=== PATIENT | female | born 1945 | race Caucasian/White ===

== ENCOUNTER 2018-08-22 08:06 | Emergency (ER) | payer MEDICARE, SELFPAY ==
[2018-08-22] VITALS (18 sets, daily range): BP systolic 120–146; BP diastolic 65–116; PULSE 61–84; RESP 16–20; TEMP 36.3; O2SAT 92–99
--- NOTE | 2018-08-22 08:31 | DI.CT_ITS ---
SYMPTOMS/DIAGNOSIS: HEADACHE, NAUSEA, ? ACUTE CEREBROVASCULAR ACCIDENT CT BRAIN, NONCONTRAST: No priors. The ventricles and sulci are consistent with the patient's age. There do appear to be areas of decreased attenuation in the white matter consistent with small vessel ischemic disease. No acute intracranial hemorrhage , infarct, midline shift or mass effect is identified. Fluid levels are seen in the maxillary sinuses bilaterally. There is mucosal thickening seen in the frontal sinuses, ethmoid air cells and mastoid sinuses bilaterally. Small fluid levels are seen in the sphenoid sinuses bilaterally. The mastoid air cells are well pneumatized. The calvarium is intact. IMPRESSION: 1. No acute intracranial process. 2. Bilateral pansinusitis.
--- NOTE | 2018-08-22 08:31 | DI.RAD_ITS ---
SYMPTOMS/DIAGNOSIS: NAUSEA, SWEATS, ? ACUTE DISEASE CHEST X-RAY, FRONTAL AND LATERAL VIEWS: No priors. The heart size is at the upper limits of normal. Pulmonary vasculature is within normal limits. Increased lung markings are seen in the right base medially. This may represent a small area of atelectasis, scarring or pneumonia. The lungs are otherwise clear. No effusions or pneumothoraces are identified. There is a hiatal hernia present. Degenerative changes are seen in the spine. IMPRESSION: Question of an infiltrate in the medial right lung base. This may represent atelectasis or pneumonia.
[2018-08-22 08:53] LABS: Abs Immature Grans 0.01 k/cumm (0.0-0.09); Absolute Basophil Count 0.02 k/cumm (0.0-0.2); Absolute Lymphocyte Count 1.27 k/cumm (1.2-3.4); Absolute Monocyte Count 0.55 k/cumm (0.11-0.7); Absolute Neutrophil Count 5.93 k/cumm (1.2-6.7); Basophils % 0.3; Eosinophils % 1.3; HCT 41.8 % (36.0-46.0); HGB 13.5 g/dL (12.0-15.5); Immature Grans % 0.1; Lymphocytes % 16.1; Mean Corp. HGB Concentration 32.3 g/dL (32.0-36.0); Mean Corpuscular Hemoglobin 28.8 pg (27.0-33.0); Mean Corpuscular Volume 89.3 fL (80-95); Mean Platelet Volume 10.1 fL (8.0-11.0); Neutrophils % 75.2; Platelet Count 269 x1000/uL (130-400); RBC 4.68 m/cumm (4.00-5.20); RBC Distribution Width 14.9 % (11.7-14.6); White Blood Cell Count 7.88 k/cumm (4.4-10.8)
[2018-08-22 09:06] LABS: ALT 23 U/L (12-78); AST 14 U/L (15-37); Albumin 3.4 g/dL (3.4-5.0); Alkaline Phosphatase 100 U/L (46-116); Anion Gap 8.5 mmol/L (3-11); BUN 18 mg/dL (7-18); Bilirubin, Direct 0.09 mg/dL (0.00-0.20); Bilirubin, Total 0.4 mg/dL (0.2-1.0); CO2 25.5 mmol/L (21.0-32.0); CREATININE 0.76 mg/dL (0.55-1.02); Calcium 8.7 mg/dL (8.5-10.1); Chloride 106 mmol/L (98-107); Glucose 137 mg/dL (70-100); Potassium 4.1 mmol/L (3.5-5.1); Sodium 140 mmol/L (136-145); Total Protein 7.1 g/dL (6.4-8.2)
[2018-08-22 09:08] LABS: Troponin I < 0.02 ng/mL (0.00-0.06)
--- NOTE | 2018-08-22 10:22 | DI.VRAD_ITS ---
EXAM: CT Head Without Intravenous Contrast EXAM DATE/TIME: 08/22/2018 8:33 AM CLINICAL HISTORY: 73 years old, female; Signs and symptoms; Dizziness and fever; Patient HX: Headache, nausea. TECHNIQUE: Axial computed tomography images of the head/brain without intravenous contrast. All CT scans at this facility use at least one of these dose optimization techniques: automated exposure control; mA and/or kV adjustment per patient size (includes targeted exams where dose is matched to clinical indication); or iterative reconstruction. Coronal and sagittal reformatted images were created and reviewed. COMPARISON: No relevant prior studies available. FINDINGS: Brain: Mild cerebral atrophy and ischemic leukoencephalopathy. Ventricles: Normal. No ventriculomegaly. Bones/joints: Normal. No acute fracture. Sinuses: Moderate bilateral maxillary sinus disease. Moderate bilateral frontal sinus disease. Moderate bilateral ethmoid sinus disease. There is mild bilateral sphenoid sinus disease. Mild to moderate bilateral pansinusitis. Mastoid air cells: Normal as visualized. No mastoid effusion. Soft tissues: Normal. IMPRESSION: Mild to moderate bilateral pansinusitis. Dictated and Authenticated by: Shawn Barron MD. Ordering:REJI CENTENO MD
--- NOTE | 2018-08-22 10:22 | DI.VRAD_ITS ---
EXAM: XR Chest, 2 Views EXAM DATE/TIME: 08/22/2018 8:33 AM CLINICAL HISTORY: 73 years old, female; Signs and symptoms; Fever TECHNIQUE: XR of the chest, 2 views. COMPARISON: No relevant prior studies available. FINDINGS: Lungs: Hyperaerated lungs consistent with moderate COPD . Mild right medial basilar bronchopneumonia. Pleural space: Unremarkable. No pleural effusion. No pneumothorax. Heart/Mediastinum: Moderate intrathoracic hiatal hernia. Bones/joints: Mild dextroscoliosis. IMPRESSION: 1. Moderate intrathoracic hiatal hernia. 2. Hyperaerated lungs consistent with moderate COPD . 3. Mild right medial basilar bronchopneumonia. Dictated and Authenticated by: Shawn Barron MD. Ordering:REJI CENTENO MD
[2018-08-22] MEDS: diphenhydrAMINE 50 MG/ML VIAL 25 MG IVP (10:35)
[2018-08-22] MEDS: Prochlorperazine 10 MG/2 ML VIAL IVP (10:36)
[2018-08-22] MEDS: Normal Saline 250 ML 500 ML IV (10:36)
--- NOTE | 2018-08-22 10:43 | W.ED.GENAD ---
Discharge Plan Disposition Patient Disposition: HOME Condition: Improving Discharge Details Chief Complaint: GenMedical Clinical Impression: Pneumonia, Sinusitis Primary Care Provider: Louie Wolf ED Provider: Hilary Haley Home Meds and New Rx's Prescriptions: New doxycycline monohydrate 100 mg capsule 100 mg PO BID 7 Days Qty: 14 RF: 0 amoxicillin-pot clavulanate [Augmentin] 875-125 mg tablet 1 tab PO BID 7 Days Qty: 14 RF: 0 Continue rosuvastatin [Crestor] 5 MG tablet 5 mg PO every other day Qty: 30 RF: 6 Discharge Instructions Instructions: Sinusitis (ED), Pneumonia (ED) Additional Instructions: Drink plenty of fluids and get plenty of rest. Take the antibiotics until finished. Follow-up with your primary care doctor in 1 week for reevaluation. Return to the emergency department with any worsening or new concerning symptoms. Discharge Data Discharge Date/Time-TO BE ENTERED AT DEPARTURE: 08/22/18 12:13 Discharge Physician: Hilary Haley Medical Decision Making 73-year-old female with history of hyperlipidemia, diabetes, osteoarthritis, GERD and obesity who presents with headache, dizziness, nausea this morning. She admits to 2 weeks of cold symptoms with nasal congestion, rhinorrhea, cough with green sputum. She states the sweats, dizziness, headache and nausea have improved, but overall still feels slightly nauseous. She thinks she is dehydrated. She states she has been eating but drinking less than usual. Blood pressure hypertensive, but otherwise vitals within normal limits. Normal ENT exam. Lungs clear to auscultation. Abdomen soft nontender. No focal deficits. 0840 --EKG noted a rate of 60, sinus, no acute ST elevation or depression, QTc 434, QRS 96. T wave inversion in lead III is seen in previous EKG. Considering patient's age and complaints, cardiac workup and CT head ordered on arrival. 11 AM: Labs and imaging reviewed white blood cell count 7.88. Hemoglobin 13.5. Electrolytes within normal limits, troponin negative. CT head notes a mild to moderate bilateral pansinusitis. Chest x-ray notes a mild right medial basilar bronchopneumonia. Patient was unable to give urine sample and she has no urinary complaints so we will cancel at this time. Patient denied any spinning sensation. She was given a 500 cc bolus, Compazine and Benadryl. Due to her history of prediabetes and hyperlipidemia, will treat for pneumonia with comorbidities with Augmentin and Zithromax. 1145 --patient feels much better and is requesting to go home. She was able to ambulate to the bathroom, take sips of water and eat crackers. She declines nausea medication for home. Instructed to follow-up with primary care doctor in 1 week and return here if worse. HPI General Mode of arrival: ambulatory. Date/Time Provider Initiated Documentation: 08/22/18 08:06. Limitations to Documentation: no limitations. Information obtained by: patient. HPI Narrative: Pt is a 73yo with a history of hyperlipidemia, pre-diabetes, osteoarthritis, GERD, obesity who presents nausea, sweats, dizziness and headache this morning with cold symptoms times 2 weeks. Patient states she woke up feeling sweaty and lightheaded. She states she still feels nauseous but states this is improved. She currently denies feeling sweaty, dizzy or with headache. She states she has been eating okay but admits to possibly being dehydrated and not drinking as much. She states for the past 2 weeks she has had nasal congestion, runny nose, cough with green sputum. She denies known fever, shortness of breath, chest pain, urinary symptoms, abdominal pain, recent hospital admission or antibiotics. States she saw her PCP last week for a different reason and was evaluated for her cold symptoms but was not given any medications. Past medical history: Hyperlipidemia, diabetes, osteoarthritis, GERD, obesity Surgical history: Tubal ligation Social history: Rare alcohol, denies tobacco or drugs Medications: Crestor Allergies: Lipitor, Lasix Related Data Home Medications Medication Instructions Recorded Confirmed rosuvastatin [Crestor] 5 mg PO every other day #30 tab 05/12/18 08/22/18 amoxicillin-pot clavulanate 1 tab PO BID 7 Days #14 tab 08/22/18 [Augmentin] doxycycline monohydrate 100 mg PO BID 7 Days #14 cap 08/22/18 Previous Rx's Medication Instructions Recorded rosuvastatin [Crestor] 5 mg PO every other day #30 tab 05/12/18 amoxicillin-pot clavulanate 1 tab PO BID 7 Days #14 tab 08/22/18 [Augmentin] doxycycline monohydrate 100 mg PO BID 7 Days #14 cap 08/22/18 Allergies Allergy/AdvReac Type Severity Reaction Status Date / Time atorvastatin calcium AdvReac Intermediate myalgias Unverified 08/14/18 09:33 [From Lipitor] latex AdvReac Mild sensitivity Unverified 08/14/18 09:33 GENERAL ANESTHESIA AdvReac Intermediate VERY SLOW Uncoded 08/14/18 09:33 RECOVERY General Stated Complaint: GenMedical JENNI: 3 Review of Systems Review of Systems All systems reviewed & are unremarkable except as noted in HPI and below Constitutional Denies chills, Denies excessive sweating, Denies fatigue, Denies fever(s), Reports headache(s), Denies weakness and Denies weight loss Eyes Reports system reviewed and no additional complaints, except as docu and Denies blurry vision ENT Denies vertigo, Reports dizziness, Denies otalgia, Reports headache(s), Reports nasal congestion, Reports nasal discharge, Denies sore throat and Denies throat swelling Cardiovascular Denies chest pain, Denies syncope, Denies rapid heart rate and Denies dyspnea Respiratory Denies dyspnea Gastrointestinal Denies abdominal pain, Denies diarrhea and Denies vomiting Genitourinary Denies hematuria, Denies dysuria and Denies flank pain Musculoskeletal Denies back pain and Denies joint swelling Integumentary/Breasts Denies lesions and Denies rash Neurologic Denies behavioral changes, Denies confusion, Denies vertigo, Reports dizziness, Denies syncope, Reports headache(s) and Denies weakness Psychiatric Denies behavioral changes, Denies confusion and Denies depression Endocrine Denies excessive sweating and Denies fatigue Hematologic/Lymphatic Denies easy bruising and Denies lymphadenopathy Allergic/Immunologic Denies throat swelling [facility] Family History Mother Diabetes Heart disease Father Diabetes Heart disease Sister No problems noted. Sister No problems noted. Brother Diabetes Personal history of malignant neoplasm Brother Diabetes Alcohol abuse Brother Substance abuse Grandfather No problems noted. Grandfather No problems noted. Grandmother Kidney failure Grandmother Kidney failure Son No problems noted. Son No problems noted. Daughter No problems noted. 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) Social History Smoking/Tobacco Use Status: Never alcohol intake: current alcohol intake frequency: holidays/special occasions only substance use type: does not use antoni/nondenominational: Rastafarian special antoni needs: No Surgical History History of Surgical Procedure (Chronic) Cervical Conization/LEEP Colectomy (03/21/15) Colonoscopy - MAC Dilation and curettage Ligation of fallopian tube Exam Const General: cooperative and healthy appearing Orientation: alert and awake HENMT Head: normal to inspection Ears: hearing grossly normal bilaterally, external ears normal and TM's normal bilaterally General nose exam: external nose normal Face and sinus: normal facial exam and sinus tenderness frontal (left ) and maxillary (left ) Mouth: mucous membranes dry Teeth and gingiva: dentition normal Throat: posterior oropharynx normal Eyes General: appearance normal, both eyes and all related structures Eyelids: eyelids normal Pupils: PERRL EOM: EOM intact bilaterally Neck Neck: normal visual inspection Lymphatic: no lymphadenopathy noted Chest Chest: normal inspection of the chest Resp Effort & Inspection: normal respiratory effort and able to speak in complete sentences Auscultation: clear to auscultation bilaterally Cardio Rate: regular rate Rhythm: regular rhythm GI Inspection: normal to inspection Palpation: soft, not firm, no guarding, no hepatosplenomegaly, no masses and nontender Auscultation: normal bowel sounds Skin General skin exam: no rashes or lesions noted Neuro General: alert, awake and oriented x3 Cranial Nerves: CN's II-XI intact bilaterally Cognition: normal cognition Speech: speech normal Gait: normal gait Motor: muscle tone normal throughout and strength 5/5 throughout Sensory Exam: no sensory deficits noted Extrem General: normal to inspection, full ROM and normal capillary refill Psych Appearance: grossly normal Mental Status: mental status grossly normal Speech and Movement: speech and movement normal Affect: normal affect Thought Process: normal Course Vital Signs Temperature 97.3 F L 08/22/18 08:21 Pulse 61 08/22/18 08:21 Respiratory Rate 16 08/22/18 08:21 Blood Pressure 145/79 H 08/22/18 08:21 Pulse Oximetry 99 08/22/18 08:21 Temperature 97.3 F L 08/22/18 08:21 Temperature Source Temporal Artery Scan 08/22/18 08:21 Pulse 61 08/22/18 08:21 Respiratory Rate 16 08/22/18 08:21 Respiratory Effort 08/22/18 08:25 Respiratory Depth Normal 08/22/18 08:25 Blood Pressure 145/79 H 08/22/18 08:21 Blood Pressure Position Supine 08/22/18 08:21 Pulse Oximetry 99 08/22/18 08:21 Oxygen Delivery Method Room Air 08/22/18 08:21 Oxygen Flow Rate 0 08/22/18 08:21 Pain Level 3 08/22/18 08:21 Lab/Test Results Lab/Test Results: Laboratory Tests Range/Units 08/22/18 08/22/18 08:35 08:35 WBC (4.4-10.8) k/cumm 7.88 RBC (4.00-5.20) m/cumm 4.68 Hgb (12.0-15.5) g/dL 13.5 Hct (36.0-46.0) % 41.8 MCV (80-95) fL 89.3 MCH (27.0-33.0) pg 28.8 MCHC (32.0-36.0) g/dL 32.3 RDW (11.7-14.6) % 14.9 H Plt Count (130-400) x1000/uL 269 MPV (8.0-11.0) fL 10.1 Immature Gran % 0.1 Neutrophils % 75.2 Lymphocytes % 16.1 Monocytes % 7.0 Eosinophils % 1.3 Basophils % 0.3 Absolute Neutrophils (1.2-6.7) k/cumm 5.93 Absolute Lymphocytes (1.2-3.4) k/cumm 1.27 Absolute Monocytes (0.11-0.7) k/cumm 0.55 Absolute Eosinophils (0.0-0.7) k/cumm 0.10 Absolute Basophils (0.0-0.2) k/cumm 0.02 Sodium (136-145) mmol/L 140 Potassium (3.5-5.1) mmol/L 4.1 Chloride (98-107) mmol/L 106 Carbon Dioxide (21.0-32.0) mmol/L 25.5 Anion Gap (3-11) mmol/L 8.5 BUN (7-18) mg/dL 18 Creatinine (0.55-1.02) mg/dL 0.76 Estimated GFR/1.73 m2 (mL/min/1.73m2) >= 60.00 Glucose (70-100) mg/dL 137 H Calcium (8.5-10.1) mg/dL 8.7 Magnesium (1.8-2.4) mg/dL 2.0 Total Bilirubin (0.2-1.0) mg/dL 0.4 Conjugated Bilirubin (0.00-0.20) mg/dL 0.09 AST (15-37) U/L 14 L ALT (12-78) U/L 23 Alkaline Phosphatase (46-116) U/L 100 Troponin I (0.00-0.06) ng/mL < 0.02 Total Protein (6.4-8.2) g/dL 7.1 Albumin (3.4-5.0) g/dL 3.4
[2018-08-22] MEDS: Amoxicillin 875/Clav. 125 TAB PO (11:05)
[2018-08-22] MEDS: Azithromycin 250 MG TAB 500 MG PO (11:05)
== END 2018-08-22 12:13 | disposition home or self-care (01) ==
PROVIDERS: Emergency Provider Physician Assistant; PCP Emergency Medicine
DX: J18.9 Pneumonia, unspecified organism (principal); J01.40 Acute pansinusitis, unspecified; E11.9 Type 2 diabetes mellitus without complications
CPT/HCPCS: 36415; 80053; 80076; 93005; 96361; 96374; 96375; 99285; 70450; 71046; 83735; 84484; 85025; 93010; J0780; J1200

== ENCOUNTER 2019-04-05 03:01 | Outpatient (CLI) | payer MEDICARE, SELFPAY ==
[2019-04-05 10:47] LABS: Anion Gap 8.5 mmol/L (3-11); BUN 16 mg/dL (7-18); CO2 28.5 mmol/L (21.0-32.0); CREATININE 0.79 mg/dL (0.55-1.02); Calcium 8.7 mg/dL (8.5-10.1); Chloride 106 mmol/L (98-107); Glucose 109 mg/dL (70-100); Potassium 4.5 mmol/L (3.5-5.1); Sodium 143 mmol/L (136-145)
[2019-04-05 10:51] LABS: Cholesterol 167 mg/dL (50-200); HDL Cholesterol 50 mg/dL (40-60); LDL CHOLESTEROL 98 mg/dL (<100); Triglyceride 67 mg/dL (30-150)
[2019-04-05 14:26] LABS: Hemoglobin A1C 6.8 % (4.5-6.2)
== END 2019-04-05 03:21 ==
PROVIDERS: PCP Emergency Medicine; Visit Provider Emergency Medicine
DX: E11.9 Type 2 diabetes mellitus without complications (principal); I10 Essential (primary) hypertension
CPT/HCPCS: 36415; 80048; 80061; 83721; 83036

== ENCOUNTER 2019-09-07 07:00 | Outpatient (CLI) | payer MEDICARE, SELFPAY ==
[2019-09-07 11:41] LABS: Hemoglobin A1C 6.6 % (4.5-6.2)
== END 2019-09-07 07:20 ==
PROVIDERS: PCP Emergency Medicine; Visit Provider Emergency Medicine
DX: E11.9 Type 2 diabetes mellitus without complications (principal)
CPT/HCPCS: 36415; 83036

== ENCOUNTER 2020-01-04 07:01 | Outpatient (CLI) | payer MEDICARE, SELFPAY ==
--- NOTE | 2020-01-04 13:00 | DI.RAD_ITS ---
EXAM: XR HIP AND PELVIS ADULT BL INDICATION: M54.4 LOW BACK PAIN, M25.551 M25.552 PAIN BILAT HIPS. COMPARISON: No exams were available for comparison TECHNIQUE: 2D digital imaging was performed. FINDINGS: There are mild degenerative changes of the hips bilaterally. There are mild degenerative changes see n at the sacroiliac joints. The symphysis pubis appears intact. No acute fracture or dislocation is seen. The soft tissues are unremarkable. IMPRESSION: Mild degenerative changes in the pelvis.
--- NOTE | 2020-01-04 13:00 | DI.RAD_ITS ---
EXAM: XR LUMBAR SPINE COMPLETE INDICATION: H/O DDD. M54.5 LOW BACK PAIN, M25.551 M25.552 BILAT HIP PAIN. COMPARISON: No exams were available for comparison TECHNIQUE: 2D digital imaging was performed. FINDINGS: There is normal alignment of the lumbar spine. There is disc space narrowing at L1-L2 and L5-S1. Th ere are endplate osteophytes present throughout the lumbar spine. There are degenerative changes of the facets throughout the lumbar spine. No acute fracture or subluxation is seen in the lumbar spine . Vascular calcifications are present. IMPRESSION: Mild to moderate degenerative changes in the lumbar spine.
== END 2020-01-04 07:21 ==
PROVIDERS: PCP Emergency Medicine; Visit Provider Family Medicine
DX: M54.5 Low back pain (principal); M51.37 Other intervertebral disc degeneration, lumbosacral region; M47.817 Spondylosis without myelopathy or radiculopathy, lumbosacral region; M25.551 Pain in right hip; M25.552 Pain in left hip; M16.0 Bilateral primary osteoarthritis of hip; M53.3 Sacrococcygeal disorders, not elsewhere classified
CPT/HCPCS: 73521; 72110

== ENCOUNTER 2020-05-05 11:28 | Emergency (ER) | payer MEDICARE, SELFPAY ==
[2020-05-05 11:36] VITALS: BP 149/92; PULSE 75; RESP 16; TEMP 36.4; O2SAT 96
--- NOTE | 2020-05-05 11:45 | DI.RAD_ITS ---
EXAM: XR SHOULDER LT COMPLETE 2+V CLINICAL HISTORY: pain, fall. TECHNIQUE: 2D digital imaging was performed. COMPARISON: CR XR CLAVICLE LT from 05/05/2020 FINDINGS: BONES: No acute fracture is present. No bony destructive lesion is seen. No left upper rib fractures are seen. JOINTS: No dislocation present. The AC joint is not widened. The sternoclavicular joint appears inta ct. SOFT TISSUE: Normal. No evidence of pneumothorax. IMPRESSION: Degenerative changes at the AC joint. No acute abnormality. DATA REPOSITORY: RADIATION DOSE DELIVERED:
--- NOTE | 2020-05-05 11:45 | DI.RAD_ITS ---
EXAM: XR HUMERUS LT CLINICAL HISTORY: pain. TECHNIQUE: 2D digital imaging was performed. COMPARISON: No exams were available for comparison FINDINGS: BONES: No acute fracture is present. No bony destructive lesion is seen. Degenerative changes are see n at the AC joint. The elbow is unremarkable. . IMPRESSION: No acute abnormality. DATA REPOSITORY: RADIATION DOSE DELIVERED:
--- NOTE | 2020-05-05 11:58 | DI.RAD_ITS ---
EXAM: XR LUMBAR SPINE AP, LAT CLINICAL HISTORY: fall, pain, fell from bunk bed. TECHNIQUE: 2D digital imaging was performed. COMPARISON: No exams were available for comparison FINDINGS: The vertebral bodies are well maintained in height. No fracture, spondylolysis or spondylolisthesis is seen. There is some spurring at the SI joints. Suture material is noted in the pelvis. There is narrowing of the L5-S1 disc space. There are facet degenerative changes at this level.. IMPRESSION: Degenerative changes. No acute abnormality. DATA REPOSITORY: RADIATION DOSE DELIVERED:
--- NOTE | 2020-05-05 12:00 | W.ED.GENAD ---
Discharge Plan Disposition Patient Disposition: HOME Condition: Stable Discharge Details Chief Complaint: Orthopedic Clinical Impression: Acute shoulder pain, Back strain, Neck strain Primary Care Provider: Louie Wolf ED Provider: Karine Mead Home Meds and New Rx's Prescriptions: No Action metronidazole 0.75 % gel 1 applic TP BID Qty: 45 RF: 6 rosuvastatin [Crestor] 5 mg tablet 5 mg PO every other day Qty: 30 RF: 6 gabapentin 100 mg capsule 100 mg PO TID Qty: 90 RF: 3 ibuprofen [Advil] 200 mg Tablet 200 mg PO Q6H PRNRF: 0 Discharge Instructions Instructions: Cervical Strain (ED), Shoulder Pain (ED), Lower Back Exercises (ED) Additional Instructions: Rest. Activities as tolerated. Ice to the shoulder area of discomfort for 15 min. 3-5 times daily. Ice or heat to back for comfort. Tylenol every 6 hours for soreness if needed over the counter for comfort. Pendulum exercises as discussed Sling for 3-5 days Follow-up with PCP if not improved in 1 week. Followup with orthopedic doctor as discussed if not improving in one week. Return for any worsening or concerns sooner if needed. Referrals: Carter Vega MD [ [facility] STAFF PHYSICIAN] - Discharge Data Discharge Date/Time-TO BE ENTERED AT DEPARTURE: 05/05/20 13:56 Medical Decision Making <KEITH Romero - Last Filed: 05/06/20 08:40> Is a very pleasant 75-year-old patient who presents to the emergency room after falling off a bunk bed in a camper after making the bed and missing a step. Please see HPI for the remainder of her history. Patient presents with acute complaints of left shoulder pain and right lower back pain. Patient's injury occurred approximately 5 days ago. She has been ambulating without difficulty and was resting at home however has persistence of right shoulder pain specifically has noted limitations to range of motion of the left shoulder which is not her baseline. Patient is also complaining of persistent right lower back pain. Denies any headache or head strike. Denies any dizziness, nausea or vomiting. No vision change. Denies paresthesia. Patient does report mild neck pain which she attributed to muscle soreness after her fall. On exam patient does have mild cervical midline tenderness as well as mild lumbar midline tenderness and right paraspinal tenderness. Patient does have limitation to the right shoulder range of motion specifically she has limited abduction of the left shoulder. Patient has no obvious deformity, swelling. We will plan to obtain x-ray of the lumbar spine, clavicle, shoulder and humerus as patient does have palpable bony tenderness in all these sites and limitation to her range of motion as previously discussed. We will plan to CT patient's neck given she is 75 years old I am concerned that x-ray of the neck will be equivocal given the likelihood of underlying arthritis. Patient offered Tylenol and declines at this time. CT of patient cervical spine unremarkable for identified fracture, degenerative changes and disc space narrowing noted. Lumbar spine x-ray again unremarkable for fracture but did identify some disc space narrowing and degenerative changes. Imaging of the left arm including clavicle humerus and shoulder on remarkable for identified fracture. These results were discussed with the patient. She is aware of degenerative disc and degenerative changes of the cervical and lumbar spine. I suspect these are old. Recommended 3 to 5 days in a sling. Patient consents to this plan of care. Pendulum exercises discussed. Possibility of rotator cuff underlying ligamentous injury discussed. Need for follow-up discussed if lack of improvement with conservative treatments and rice. Patient reports her understanding and agrees this plan of care. Discussed lower back symptoms. Nothing to indicate neurosurgical emergency at this time. I suspect myofascial strain with possible spasm as patient does have some increase in pain with straight leg raise on the right. Discussed medication management versus conservative treatments. Patient's preference is conservative treatments at this time. Recommended follow-up with PCP for lack of improvement. Discussed alarming symptoms for which patient should return to the emergency room. Patient reports understanding. The patient was stable and requested discharge. Prior to discharge, my usual and customary return precautions were reviewed with the patient - this included follow-up instructions and reasons to return to the Emergency Department if conditions worsens, does not improve as expected, or other new concerns arise. <Shawn Esteban MD - Last Filed: 05/05/20 13:09> I had a [id number] encounter with the patient. I evaluated the patient. I discussed case with CLERK TRAVEL RESERVATIONS/PA and I reviewed CLERK TRAVEL RESERVATIONS/PA note and agree with note as documented HPI <KEITH Romero - Last Filed: 05/06/20 08:40> General Date/Time Provider Initiated Documentation: 05/05/20 11:36. HPI Narrative: This is a very pleasant 75-year-old woman who was on the top bunk making the bed and she was stepping out of the top bunk onto a raised step which she missed ultimately falling to the ground. Patient reports she was in a camper did not strike any other furniture before falling to the ground. Patient denies striking her head. Patient reports fall occurred 5 to 6 days ago. Patient is complaining of left shoulder pain as well as right lower back pain. Patient has been ambulating without difficulty. Denies any lower extremity complaints or weakness. Patient reports difficulty with left shoulder range of motion specifically she is having difficulty lifting her arm above 90 degrees. Patient denies any numbness or tingling of upper or lower extremities. Patient denies any difficulty eating, drinking, urinating or moving bowels. Denies any chest pain, difficulty breathing or shortness of breath or wheezing. Denies any headache or dizziness. No vision change. No tinnitus. Patient reports mild neck pain which she attributed to her left shoulder or muscle spasm. Patient denies use of blood thinners. Patient denies any other injuries or concerns at this time. No wounds. Related Data Home Medications Medication Instructions Recorded Confirmed metronidazole 0.75 % topical gel 1 applic TP BID #45 gm 04/02/19 05/05/20 rosuvastatin 5 mg tablet 5 mg PO every other day #30 tab 04/30/19 05/05/20 gabapentin 100 mg capsule 100 mg PO TID #90 cap 01/13/20 ibuprofen [Advil] 200 mg PO Q6H PRN 05/05/20 05/05/20 Previous Rx's Medication Instructions Recorded metronidazole 0.75 % topical gel 1 applic TP BID #45 gm 04/02/19 rosuvastatin 5 mg tablet 5 mg PO every other day #30 tab 04/30/19 gabapentin 100 mg capsule 100 mg PO TID #90 cap 01/13/20 Allergies Allergy/AdvReac Type Severity Reaction Status Date / Time atorvastatin calcium AdvReac Intermediate myalgias Verified 05/05/20 11:39 [From Lipitor] latex AdvReac Mild sensitivity Verified 05/05/20 11:39 GENERAL ANESTHESIA AdvReac Intermediate VERY SLOW Uncoded 05/05/20 11:39 RECOVERY General Stated Complaint: Orthopedic JENNI: 3 Review of Systems <KEITH Romero - Last Filed: 05/06/20 08:40> All systems reviewed & are unremarkable except as noted in HPI and below PFSH <KEITH Romero - Last Filed: 05/06/20 08:40> Medical History 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 Diet controlled with a hemoglobin A1c of 6.5%, February 2013. Diverticulosis of colon without diverticulitis (Chronic) Gastroesophageal reflux disease (Chronic) Headache (Chronic) History of simple renal cyst (Chronic) Hyperlipidemia (Chronic) Hyperlipidemia (Chronic 02/19/13) Knee pain (Chronic) Left foot pain (Acute) Low back pain (Chronic) Lumbago (Chronic) Obesity (Chronic) a. Stage 2. Obesity (Chronic 02/19/13) Osteoarthritis (Chronic) a. Hips, knees, and hands. Psoriasis (Chronic) Surgical History (Updated 09/06/19 @ 11:57 by Donald Ceja) Cervical Conization/LEEP Colectomy (03/21/15) [place] [facility] [place] showing a. Diverticulosis b. Hemorrhoids 11/08/14; DR. MORA Dilation and curettage History of Surgical Procedure (Chronic) a. S/P bilateral tubal ligation. b. S/P LEEP. c. S/P dilation and curettage. d. S/P kidney stones. Ligation of fallopian tube Social History Smoking/Tobacco Use Status: Never Alcohol Intake: current Alcohol Intake frequency: holidays/special occasions only Drug use: Never Substance use type: does not use Caregiver/Support person: No Household members: spouse Housing: house Communication Needs: Hard of Hearing Do you need help understanding health information?: Never Pets and animals: Yes Pets and animals: cat(s) and farm animals Sexually active: Yes Do you think of yourself as: straight/heterosexual Current gender identity: male What is your relationship status?: How often do you talk on the phone with friends or family?: three or more times per week How often do you get together with friends or relatives?: three or more times per week How often do you attend anabaptism or orthodoxy services?: 1-3 times per year Do you belong to any clubs or organized social groups?: no Panel score (0-1 are the most socially isolated patients): 2 What type of physical activity do you participate in: none and decline to answer Duration: > 90 minutes/day Frequency: daily Amanda/Presybeterian: None Special amanda needs: No Seatbelt use: always Helmet use: Yes Helmet use: always Drive intox or ride w/intox 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 Well hydrated. Alert and oriented. HENMT: Head nomocephalic, normal to inspection. Atraumatic. Hearing grossly normal. EYES: General normal appearance. Alignment normal. Eyelids normal. Conjunctiva normal. NECK: Normal visual inspection. FROM. Trachea midline. Mild cervical midline tenderness. Mild left paraspinal tenderness CHEST: Normal insepection of the chest. RESP: Normal respiratory effort. Speaking full sentences. No cough. No audible wheezing. No retractions. Breath sounds clear, full and equal bilaterally. No wheezing, rhonchi or rales CARDIO: No JVD. No murmur. Regular rate and rhythm MUSCULOSKELETAL: Normal Gait. Right arm with full range of motion. No palpable tenderness. Left arm with limited range of motion with abduction greater than 90 degrees. Pain with abduction at 90 degrees. Mid clavicle tenderness, left shoulder tenderness. No scapular tenderness elicited with palpation. Mid humeral tenderness noted without associated swelling or deformity. No elbow pain with palpation, forearm pain with palpation or wrist pain with palpation. Configuration Consultant strength intact. Sensation equal bilaterally. Pulses equal bilaterally in upper extremities. Lower extremity exam is normal. Straight leg raise intact bilaterally. Mild pain in the right lower back with right leg straight leg raise at approximately 90 degrees. DTRs intact and equal bilaterally in the lower extremities. No foot drop. Sensation intact and equal distally. Back: Mild neck pain with palpation in the midline. Minimal paraspinal tenderness noted on the left. No thoracic pain with palpation. Mild midline lumbar tenderness with palpation as well as right paraspinal tenderness in the lumbar area. No obvious step-offs. No deformities. No ecchymosis bruising or swelling. No CVA tenderness noted bilaterally. SKIN: Normal. Dry. No rashes. NEURO: Alert and awake. Speech clear. PSYCH: Normal affect. Cooperative. Course <KEITH Romero - Last Filed: 05/06/20 08:40> Vital Signs Vital signs: Vital Signs Temperature 36.4 C L 05/05/20 11:36 Pulse 75 05/05/20 11:36 Respiratory Rate 16 05/05/20 11:36 Blood Pressure 149/92 H 05/05/20 11:36 Pulse Oximetry 96 05/05/20 11:36 Temperature 36.4 C L 05/05/20 11:36 Temperature Source Temporal Artery Scan 05/05/20 11:36 Pulse 75 05/05/20 11:36 Respiratory Rate 16 05/05/20 11:36 Respiratory Effort Non-Labored 05/05/20 11:40 Blood Pressure 149/92 H 05/05/20 11:36 Blood Pressure Position Sitting 05/05/20 11:36 Pulse Oximetry 96 05/05/20 11:36 Oxygen Delivery Method Room Air 05/05/20 11:36 Oxygen Flow Rate 0 05/05/20 11:36
--- NOTE | 2020-05-05 12:35 | DI.CT_ITS ---
EXAM: CT CERVICAL SPINE WO CLINICAL HISTORY: fall, midline neck tenderness. TECHNIQUE: Imaging Protocol: Axial computed tomography images with coronal and sagittal reformatted images were created and reviewed CONTRAST MATERIAL: Noncontrast COMPARISON: No exams were available for comparison FINDINGS: Bones: No fracture or dislocations are seen. There is some reversal of the normal cervical lordosis, likely secondary to patient positioning. There are degenerative disc changes from C4-5 through C6-7. Facet degenerative changes are greatest at C3-4. There is no prevertebral soft tissue swelling. T he airway appears intact. IMPRESSION: Degenerative changes. No acute abnormality. RADIATION DOSE DELIVERED: 423.89mGy.cm Total DLP DATA REPOSITORY: All CT scans at this facility are submitted to the National Radiology Data Registry (NRDR) Dose Index Registry (DIR) with the [employer] ([employer]). RADIATION OPTIMIZATION: All CT scans at this facility use at least one of these dose optimization te chniques: automated exposure control; mA and/or kV adjustment per patient size (includes targeted exa ms where dose is matched to clinical indication); or iterative reconstruction.
== END 2020-05-05 13:56 | disposition home or self-care (01) ==
PROVIDERS: Emergency Provider Physician Assistant; PCP Emergency Medicine
DX: M25.512 Pain in left shoulder (principal); S16.1XXA Strain of muscle, fascia and tendon at neck level, initial encounter; S39.012A Strain of muscle, fascia and tendon of lower back, initial encounter; W06.XXXA Fall from bed, initial encounter; E11.9 Type 2 diabetes mellitus without complications
CPT/HCPCS: 99284; 72100; 72125; 73000; 73030; 73060; 99285; L3650

== ENCOUNTER 2020-05-24 03:22 | Outpatient (CLI) | payer MEDICARE, SELFPAY ==
[2020-05-24 12:46] LABS: Anion Gap 10.2 mmol/L (3-11); BUN 17 mg/dL (7-18); CO2 26.8 mmol/L (21.0-32.0); Calcium 9.2 mg/dL (8.5-10.1); Chloride 107 mmol/L (98-107); Glucose 108 mg/dL (74-106); Potassium 4.1 mmol/L (3.5-5.1); Sodium 144 mmol/L (136-145)
[2020-05-24 12:58] LABS: Hemoglobin A1C 6.4 % (3.8-5.6)
== END 2020-05-24 03:42 ==
PROVIDERS: PCP Emergency Medicine; Visit Provider Emergency Medicine
DX: E11.9 Type 2 diabetes mellitus without complications (principal); I10 Essential (primary) hypertension
CPT/HCPCS: 36415; 80048; 83036

== ENCOUNTER 2021-04-24 16:10 | Outpatient (REF) | payer MEDICARE, SELFPAY ==
[2021-04-24 21:04] LABS: COMMENT (LAB VIEW ONLY) 126.72 mg/dL; Microalb ug/mg Crea 21.5 ug/mg Cr
[2021-04-24 21:29] LABS: Hemoglobin A1C 6.6 % (<5.7)
[2021-04-24 21:30] LABS: Anion Gap 9.1 mmol/L (3-11); BUN 20 mg/dL (7-18); CO2 26.9 mmol/L (21.0-32.0); CREATININE 0.9 mg/dL (0.55-1.02); Calculated LDL 105 mg/dL (<100); Chloride 107 mmol/L (98-107); Cholesterol 178 mg/dL (<200); Glucose 97 mg/dL (74-106); HDL Cholesterol 53 mg/dL (40-60); Potassium 4.6 mmol/L (3.5-5.1); Sodium 143 mmol/L (136-145); Triglyceride 101 mg/dL (<150)
== END 2021-04-24 16:11 | disposition home or self-care (01) ==
LOC: LBN 16:10
PROVIDERS: PCP Emergency Medicine; Visit Provider Emergency Medicine
DX: I10 Essential (primary) hypertension (principal); E78.5 Hyperlipidemia, unspecified; E11.9 Type 2 diabetes mellitus without complications
CPT/HCPCS: 80048; 80061; 82043; 82570; 83036

== ENCOUNTER 2021-05-09 01:43 | Outpatient (CLI) | payer MEDICARE, SELFPAY ==
--- NOTE | 2021-05-09 08:30 | DI.MAMMO_ITS ---
Exam(s) MAMMO SCREENING EXAM: MAMMO SCREENING CLINICAL HISTORY: screening,Z12.39. TECHNIQUE: Bilateral full field digital CC and MLO mammographic images were obtained with 3D tomosyn thesis and utilizing computer aided detection (CAD). COMPARISON: Prior mammograms dating back to 2011, the most recent being April 2018. FINDINGS: There are no CAD designations. There are no new spiculated masses nor malignant appearing microcalcification groups. There is no significant architectural distortion nor skin thickening-retraction. IMPRESSION: No radiographic evidence of malignancy. BI-RADS Category 1 - Negative Breast Density - Category A - Almost entirely fatty Breast density Category C or D implies that the patient has dense breast tissue. Dense breast tissue can make it harder to find cancer on a mammogram. Dense breast tissue is also associated with an incr eased risk of breast cancer. This information about the result of the mammogram report was provided to the patient to raise their awareness. Use this report when you speak with the patient about their risks for breast cancer, which includes their family history. At that time, you may recommend additional screening tests (Ultrasoun d or MRI) as these tests may add significant information. A negative radiographic report should not delay biopsy if a dominant or clinically suspicious mass is present. Up to ten percent of cancers are not identified on mammography. A negative report may reinforce clinical impression. Adenosis and dense breasts may obscure an underlying neoplasm. False positive reports average 6 to 10%. Patient will receive a letter notifying them of these results.
== END 2021-05-09 02:03 ==
PROVIDERS: PCP Emergency Medicine; Visit Provider Emergency Medicine
DX: Z12.31 Encounter for screening mammogram for malignant neoplasm of breast (principal); R92.8 Other abnormal and inconclusive findings on diagnostic imaging of breast
CPT/HCPCS: 77063; 77067

== ENCOUNTER 2022-05-01 02:15 | Outpatient (CLI) | payer MEDICARE, SELFPAY ==
[2022-05-01 13:04] LABS: Hemoglobin A1C 6.6 % (<5.7)
[2022-05-01 13:05] LABS: Anion Gap 8.3 mmol/L (3-11); BUN 16 mg/dL (7-18); CO2 27.7 mmol/L (21.0-32.0); CREATININE 0.9 mg/dL (0.55-1.02); Calcium 8.9 mg/dL (8.5-10.1); Chloride 106 mmol/L (98-107); Glucose 110 mg/dL (74-106); Potassium 4.6 mmol/L (3.5-5.1); Sodium 142 mmol/L (136-145)
[2022-05-01 13:10] LABS: COMMENT (LAB VIEW ONLY) 49.84 mg/dL; Microalb ug/mg Crea 21.9 ug/mg Cr
== END 2022-05-01 02:16 | disposition home or self-care (01) ==
LOC: LOS 02:16
PROVIDERS: PCP Family Medicine; Visit Provider Family Medicine
DX: E11.9 Type 2 diabetes mellitus without complications (principal)
CPT/HCPCS: 36415; 80048; 82043; 82570; 83036